=== PATIENT | male | born 1980 | race Caucasian/White ===

== ENCOUNTER 2019-10-23 22:40 | Emergency (ER) | payer BC ==
[~2019-10-23] VITALS: Ht 167.6 cm; Wt 83.9 kg
--- NOTE | ~2019-10-23 | EKG ---
[facility] [address] [place] [address] ELECTROCARDIOGRAM REPORT Name: MARILY RODRÍGUEZIC Room #: PRE M.R.#: [id number] Admission: Attend Phys: Discharge: Date of : 78 Report #: [id number] THIS REPORT FOR: cc: Doc Roach MD ~ THIS REPORT FOR: //name// [facility] ED Test Date: 2019-10-23 Test Time: 22:47:56 Pat Name: ABA RODRÍGUEZ Department: Room: Gender: M [employer]: JOSHUA : 1980 Requested By: Helen Muhammad Order Number: [id number] MD: Measurements Intervals [place] Rate: 80 P: 123 SC: 166 QRS: -21 QRSD: 100 T: 46 QT: 364 QTc: 420 Interpretive Statements Sinus rhythm Probable left atrial enlargement Inferior infarct, old No previous ECG available for comparison [email or web address] By: 46 46 Doc Roach MD /EPI
[2019-10-23 23:34] LABS: ABSOLUTE NEUTROPHILS 9.9 thou/uL (1.4-8.2); BASOPHILS 0.4 % (0.0-2.0); EOSINOPHILS 0.1 % (0.0-3.0); HEMATOCRIT 43.9 % (42.0-52.0); HEMOGLOBIN 14.8 gm/dL (14.0-18.0); LYMPHOCYTES 13.2 % (24.0-44.0); MCH 31.5 pg (26.0-34.0); MCHC 33.8 g/dL (28.0-37.0); MCV 93.1 fL (80.0-100.0); MONOCYTES 6.5 % (1.0-8.0); PLATELET COUNT 240 thou/uL (150-400); POLYS 79.8 % (36.0-66.0); RBC 4.71 mil/uL (4.50-6.00); RDW 12.5 % (10.5-14.5); WBC 12.4 thou/uL (4.0-11.0)
[2019-10-23 23:36] LABS: ANION GAP 9 mmol/L (7-16); BUN 16 mg/dL (7-18); CALCIUM 9.2 mg/dL (8.5-10.1); CHLORIDE 102 mmol/L (98-107); CO2 27 mmol/L (21-32); CREATININE 1.1 mg/dL (0.7-1.3); GLUCOSE 121 mg/dL (74-106); POTASSIUM 3.2 mmol/L (3.5-5.1); SODIUM 138 mmol/L (136-145)
[2019-10-23 23:46] LABS: ALBUMIN 4.3 g/dL (3.4-5.0); SGOT 22 U/L (15-37); SGPT 56 U/L (30-65); TOTAL BILIRUBIN 0.5 mg/dL (<0.1-1.0); TOTAL PROTEIN 8.1 g/dL (6.4-8.2); TROPONIN-I <0.06 ng/mL (<0.06)
[2019-10-24] MEDS ORDERED: PEPCID20 MG PO (02:01)
[2019-10-24 02:05] VITALS: BP 138/81
== END 2019-10-24 02:08 | disposition home or self-care (01) ==
LOC: ER 22:40
PROVIDERS: Student in an Organized Health Care Education/Training Program
DX: R07.89 Other chest pain (principal); E87.6 Hypokalemia; R42 Dizziness and giddiness; Z87.891 Personal history of nicotine dependence